=== PATIENT | female | born 1950 | race Caucasian/White ===

== ENCOUNTER 2020-08-08 20:49 | Emergency (ER) | payer SELFPAY ==
[2020-08-08 20:50] VITALS: BP 147/104; PULSE 184; RESP 17; TEMP 36.9; O2SAT 98; BMI 25.6
[2020-08-08 21:00] VITALS: PULSE 191; RESP 16; O2SAT 97
--- NOTE | 2020-08-08 21:13 | ED.ARRPALP ---
HPI - Arrhythmia/Palpitations General Chief Complaint: Arrhythmia/Palpitations Stated Complaint: ELEVATED HEART RATE Time Seen by Provider: 08/08/20 21:13 Source: patient Mode of arrival: Ambulatory Limitations: no limitations History of Present Illness HPI narrative: Patient is a 70-year-old female who is here for evaluation of a rapid heart rate. She states that it started around noon today. It has been consistent since then. Has had some chest tightness during the time. Is not lightheaded. She has had these types of symptoms in the past. Some of them have resolved on their own but she has also been to the emergency department in the past. Upon questioning and does not appear that she has ever been cardioverted. She denies any specific diagnosis of atrial fibrillation. She did describe being in the emergency department at 1 point getting medication through an IV which helped her symptoms. She has never had a Holter monitor. Has not seen Cardiology for the symptoms. Related Data Allergies Allergy/AdvReac Type Severity Reaction Status Date / Time codeine Allergy Verified 08/08/20 21:10 Review of Systems Constitutional Constitutional: Reports system reviewed and no additional complaints, except as documented and Denies headache(s) ENT Ears, Nose, Mouth, and Throat: Denies dizziness and Denies headache(s) Cardiovascular Cardiovascular: Reports chest pain, Reports rapid heart rate and Denies dyspnea Respiratory Respiratory: Denies dyspnea Gastrointestinal Gastrointestinal: Reports system reviewed and no additional complaints, except as documented Genitourinary Genitourinary: Reports system reviewed and no additional complaints, except as documented Musculoskeletal Musculoskeletal: Reports system reviewed and no additional complaints, except as documented Integumentary/Breasts Skin/Breast: Reports system reviewed and no additional complaints, except as documented Neurologic Neurologic: Denies dizziness and Denies headache(s) Psychiatric Psychiatric: Reports system reviewed and no additional complaints, except as documented Hematologic/Lymphatic On Anticoagulants: No Allergic/Immunologic Allergic/Immunologic: Reports system reviewed and no additional complaints, except as documented Patient History Medical History Palpitations Social History Smoking Status: Unknown if ever smoked Smoking Status: Unknown if ever smoked alcohol intake frequency: holidays/special occasions only Substance Use Type: does not use Exam Initial Vital Signs Initial Vital Signs: Vital Signs Temperature 98.4 F 08/08/20 20:50 Pulse Rate 184 H 08/08/20 20:50 Respiratory Rate 17 08/08/20 20:50 Blood Pressure 147/104 H 08/08/20 20:50 Pulse Oximetry 98 08/08/20 20:50 Const General: cooperative and comfortable Limitations: mental status not altered HENMT Head: normal to inspection and normocephalic Chest Chest: No tenderness Resp Effort & Inspection: normal respiratory effort Auscultation: clear to auscultation bilaterally Cardio Rate: tachycardic Rhythm: regular rhythm GI Inspection: non-distended Skin Lesions: no lesions Rashes: no rashes Neuro General: patient alert, patient awake and patient oriented x3 Cognition: normal cognition Speech: speech normal Extrem General: normal to inspection and capillary refill normal Psych Appearance: grossly normal and well kempt Course Orders Ordered: ED Orders 08/08/20 21:12 Basic Metabolic Panel Stat Complete Blood Count AUTO DIFF Stat Magnesium Stat Vital Signs Vital signs: Vital Signs - 8 hr 08/08/20 21:00 08/08/20 21:30 08/08/20 22:00 Pulse Rate 191 H 82 77 Respiratory Rate 16 22 13 Blood Pressure Pulse Oximetry 97 94 95 08/08/20 22:32 Pulse Rate 78 Respiratory Rate 18 Blood Pressure 116/58 L Pulse Oximetry 97 MDM - Arrhythmia/Palpitations Lab Data Attestation: I reviewed the patient's lab results. Result diagrams: 08/08/20 21:12 08/08/20 21:12 Labs: Lab Results 08/08/20 08/08/20 Range/Units 21:12 21:12 WBC 9.9 (4.5-11.0) X10^3/uL RBC 4.38 (4.0-5.2) X10^6/uL Hgb 14.2 (12.0-16.0) g/dL Hct 42.0 (36-46) % MCV 96.1 (80-100) fL MCH 32.4 (26-34) PG MCHC 33.7 (30-36) % RDW 13.0 (11.6-14.8) % Plt Count 288 (150-400) X10^3/uL Neut % (Auto) 61.7 (50-75) % Lymph % (Auto) 25.6 (25-40) % Bartholomew % (Auto) 9.1 (3-14) % Eos % (Auto) 2.8 (2-4) % Baso % (Auto) 0.8 (0-2) % Neut # (Auto) 6100 (7992-7195) /uL Lymph # (Auto) 2500 (9343-4721) /uL Bartholomew # (Auto) 900 (0-900) /uL Eos # (Auto) 300 (0-450) /uL Baso # (Auto) 100 (0-100) /uL Sodium 140 (137-145) mmol/L Potassium 4.1 (3.4-5.1) mmol/L Chloride 103 (98-107) mmol/L Carbon Dioxide 27 (22-32) mmol/L BUN 21 H (7-17) mg/dL Creatinine 0.44 L (0.52-1.04) mg/dL Estimated GFR > 60.0 (>60) mL/min BUN/Creatinine Ratio 47.7 H (6-22) Glucose 126 H (80-110) mg/dL Calcium 9.7 (8.4-10.2) mg/dL Magnesium 1.9 (1.6-2.3) mg/dL ECG Data Attestation: I personally reviewed and interpreted this ECG as follows: Prior ECG tracings: not available for review Interpretation: Presenting EKG Tachycardia Ventricular rate 192 Normal QRS Normal QTC No ST T wave changes Post adenosine EKG Sinus rhythm Ventricular rate 85 Normal axis Normal QRS Normal QTC No ST T wave changes MDM Narrative Medical decision making narrative: Upon arrival patient was tachycardic. It was a regular narrow complex tachycardia. She was given 6 mg of adenosine and converted to a sinus rhythm with a heart rate in the 80s. Her lecture lytes are unremarkable. She reported complete resolution of all of her presenting symptoms after the administration of the adenosine. I feel that we can hold on further workup for now. Will have her contact her primary doctor she is most likely going to need further workup to include an echocardiogram and Holter monitor and potential Cardiology consultation. She was given strict return precautions and follow-up instructions. She expressed understanding and agreement. Critical Care Time Critical Care Time Critical Care Time: Yes Total Critical Care Time: 40 Attestation: The high probability of a clinically significant, sudden or life threatening deterioration of the cardiovascular system(s) required my full and direct attention, intervention and personal management. The aggregate critical care time was 40 minutes. This time is in addition to time spent performing reported procedures but includes the following: [X] Data Review and interpretation [X] Patient assessment and monitoring of vital signs X [] Documentation [X] Medication orders and management Discharge Plan Departure Patient Disposition: Home Clinical Impression: Supraventricular tachycardia Instructions: DI for Paroxysmal Supraventricular Tachycardia Activity Restrictions/Additional Instructions: I do recommend that on Tuesday you contact your primary doctor's office to establish care with a new provider. I recommend that you discuss further workup to include a stress test, echocardiogram and potential Holter monitor. Return to the emergency department for any new or worsening symptoms Referrals: Armand Garza MD [Primary Care Provider] -
[2020-08-08] MEDS: ADENOSINE 6 MG/2 ML VIAL 18 MG IV (21:27)
[2020-08-08 21:30] VITALS: PULSE 82; RESP 22; O2SAT 94
[2020-08-08 21:54] LABS: BUN Creatinine Ratio 47.7 (6-22); Blood Urea Nitrogen 21 mg/dL (7-17); Calcium 9.7 mg/dL (8.4-10.2); Carbon Dioxide 27 mmol/L (22-32); Chloride 103 mmol/L (98-107); Estimated Glomerular Filt Rate > 60.0 mL/min (>60); Glucose 126 mg/dL (80-110); HEMOLYSIS 19 (0-50); Magnesium 1.9 mg/dL (1.6-2.3); Potassium 4.1 mmol/L (3.4-5.1); Sodium 140 mmol/L (137-145)
[2020-08-08 21:58] LABS: Add Manual Diff / Slide Review NO; Basophils Absolute Auto 100 /uL (0-100); Basophils Percent Auto 0.8 % (0-2); Eosinophils Absolute Auto 300 /uL (0-450); Eosinophils Percent Auto 2.8 % (2-4); Hemoglobin 14.2 g/dL (12.0-16.0); Lymphocytes Absolute Auto 2500 /uL (1100-4500); Lymphocytes Percent Auto 25.6 % (25-40); Mean Corpuscular HGB Conc 33.7 % (30-36); Mean Corpuscular Hemoglobin 32.4 PG (26-34); Mean Corpuscular Volume 96.1 fL (80-100); Monocytes Absolute Auto 900 /uL (0-900); Monocytes Percent Auto 9.1 % (3-14); Neutrophils Absolute Auto 6100 /uL (1500-7000); Neutrophils Percent Auto 61.7 % (50-75); Platelet Count 288 X10^3/uL (150-400); Red Blood Cell Count 4.38 X10^6/uL (4.0-5.2); White Blood Cell Count 9.9 X10^3/uL (4.5-11.0)
[2020-08-08 22:00] VITALS: PULSE 77; RESP 13; O2SAT 95
[2020-08-08 22:32] VITALS: BP 116/58; PULSE 78; RESP 18; O2SAT 97
== END 2020-08-08 22:34 | disposition home or self-care (01) ==
PROVIDERS: Emergency Provider Emergency Medicine; Family Provider Family Medicine; PCP Family Medicine
DX: I47.1 Supraventricular tachycardia (principal); R07.9 Chest pain, unspecified
CPT/HCPCS: 36415; 80048; 83735; 85025; 93005; 96374; 99284; 99291; J0153

== ENCOUNTER 2023-07-22 19:46 | Emergency (ER) | payer MEDICARE, SELFPAY ==
[2023-07-22] VITALS (7 sets, daily range): BP systolic 176–208; BP diastolic 81–98; PULSE 82–96; RESP 18–148; TEMP 36.7; O2SAT 94–100; BMI 26.5
--- NOTE | 2023-07-22 20:42 | ED_ITS ---
HPI - Animal Bite General Chief Complaint: Animal Bite Stated Complaint: Dog bite to face Time Seen by Provider: 07/22/23 20:36 Source: patient Mode of arrival: Ambulatory Limitations: no limitations History of Present Illness HPI narrative: 72-year-old with history of SVT on no anticoagulants. Patient states her dog she was petting met with the ground and then bit her on the face. She has lacerations to her eyelid nose and cheek with abrasions and her cheek and temporal as well as her lip. Does appear she may have a little bit of a laceration to her gum but she states her teeth feel solid. She does not a ppreciate any changes to her vision but notes a little bit of squiggles in his unsure if this is from her eyelid or visual change. She denies any pain to the eye itself. She is unsure when her last tetanus was. She states this was a rescue dog. She is returning back to the service dog trainer tomorrow. She will not keep the dog. Dog is up-to-date with rabies vaccinations, patient is not up-to-date with tetanus. She states the dog has never bitten before that she is aware of but has ground before when pending it. She describes it as a lab. She denies any other medical problems she states she has not on any daily medications. She has not allergy to codeine. Related Data Allergies Allergy/AdvReac Type Severity Reaction Status Date / Time codeine Allergy Verified 07/22/23 19:57 Review of Systems Review of Systems ROS Unobtainable: All systems reviewed & are unremarkable except as noted in HPI and below Patient History Medical History Palpitations Social History Smoking Status: Never smoker Smoking Status: Never smoker alcohol intake frequency: 0-2 drinks per day Substance Use Type: does not use Exam Narrative Exam Narrative: GEN: well nourished, well appearing female, alert and oriented x 3, patient appears to be in mild distress. HEENT: Patient has abrasions that are mainly superficial of the left temporal and she is, she does have 2 lacerations one in the crease of the nose below the eye, 2nd over the bridge of the nose that are both proximally cm in size and through the skin, patient has quite a bit of abrasion and ecchymosis of the other lip but no obvious punctures or lacerations. Her teeth she has no malocclusion no movement with palpation of the teeth. There appears to be little bit of abrasion into the gum just above the 2 front incisors. Patient does have a laceration to the left upper eyelid it is approximately 0.5 cm to 0.25 cm in size but is full thickness and there is gappage and involvement all the way through at the edge at the lash line, pupils are equal round reactive to light, extraocular movements are intact, nares are clear, TMs are clear with no fluid, there is no conjunctival pallor. Throat is clear without any exudates, erythema, tonsillar enlargement or uvular deviation Visual acuity: right 20/50, left 20/50 with correction. IOP: Right 24 mm Hg, Left 27 mm Hg General: globe appears intact Eyelids: normal inspection on right, left see above. Conjunctiva/Sclera: normal inspection on left, on right patient has lateral subconjunctival hemorrhage. Corneas: normal inspection, examined with fluroscein on left, patient does have uptake at the 12 o'clock position of the sclera but no significant uptake over the cornea. No waterfall sign. EOM: intact, no palsy/entrapment Pupils: PERRL, normal accomadation, pupil normal Anterior Chambers: normal inspection, no hypema Posterior: normal fundoscopic on bilaterally. HEART: Regular rate and rhythm without murmur, clicks, rubs. LUNGS:Lungs clear to auscultation, no wheezes, rales, crackles, chest moves symmetrically ABD:bowel sounds normal, soft, non-tender, no guarding, rebound, rigidity, no masses noted, no hepatosplenomegaly MSCL: Non-tender, no muscle atrophy, muscles strength 5/5 upper and lower extremities, full range of motion, normal gait, no other obvious abrasions or injuries to patient's extremities. NEURO:CN 2-12 intact, sensation normal Initial Vital Signs Initial Vital Signs: Vital Signs Pulse Rate 92 H 07/22/23 19:50 Blood Pressure 208/98 H 07/22/23 19:50 Pulse Oximetry 100 07/22/23 19:50 Procedures Laceration Repair Laceration 1: Site: face (nose) Size (cm): 1 Description: irregular Depth: simple, single layer Local Anesthetic: lidocaine 2% Amount of anesthesia used (mL): 1 Pre-repair: wound explored, irrigated extensively and deep structures intact Skin layer closed with: vicryl Skin layer suture size: 5-0 Number of sutures: 5 Technique: simple, interrupted Laceration 2: Site: face (left lateral nose) Size (cm): 0.75 Description: irregular Depth: simple, single layer Local Anesthetic: lidocaine 2% Amount of anesthesia used (mL): 1 Pre-repair: wound explored, irrigated extensively and deep structures intact Skin layer closed with: vicryl Skin layer suture size: 5-0 Number of sutures: 3 Technique: simple, interrupted Course Orders Ordered: Discontinued Medications Amoxicillin/Clavulanate Potassium (Amoxicillin/Clav 875/125 Mg) 1 tab PO NOW ONE Stop: 07/22/23 20:56 Last Admin: 07/22/23 21:02 Dose: 1 tab Documented By: ASHVIN Diphtheria/Tetanus/Acell Pertussis (Tet,Diph,Pertuss(Acell),Vac/Pf 0.5 Ml Syringe) 0.5 ml IM .ONCE ONE Stop: 07/22/23 20:28 Last Admin: 07/22/23 21:03 Dose: 0.5 ml Documented By: ASHVIN Fluorescein Sodium (Fluorescein 1 Mg Strip) 1 mg EYE-LEFT NOW ONE Stop: 07/22/23 20:49 Last Admin: 07/22/23 21:02 Dose: 1 mg Documented By: ASHVIN Lidocaine HCl (Lidocaine 2% Inj Sdv 5ml) 10 ml INJ NOW ONE Stop: 07/22/23 20:49 Last Admin: 07/22/23 21:01 Dose: 10 ml Documented By: ASHVIN Proparacaine HCl (Proparacaine 0.5% Ophth Chantelle) 1 drops EYE-BOTH NOW ONE Stop: 07/22/23 20:49 Last Admin: 07/22/23 21:01 Dose: 1 drop Documented By: ASHVIN Vital Signs Vital signs: Vital Signs - 8 hr 07/22/23 19:50 07/22/23 19:50 07/22/23 19:53 Temperature 98.1 F Pulse Rate 92 H 89 Respiratory Rate 148 H Blood Pressure 208/98 H 208/98 H Pulse Oximetry 100 99 Oxygen Delivery Method Room Air 07/22/23 20:00 05/24/24 20:00 07/22/23 20:30 Temperature Pulse Rate 96 H 89 Respiratory Rate Blood Pressure 201/95 H Pulse Oximetry 98 98 Oxygen Delivery Method Room Air 07/22/23 20:56 07/22/23 20:56 07/22/23 21:00 Temperature Pulse Rate 87 Respiratory Rate Blood Pressure 195/89 H 176/81 H Pulse Oximetry 96 Oxygen Delivery Method 07/22/23 21:00 07/22/23 22:16 07/22/23 22:16 Temperature Pulse Rate 82 88 Respiratory Rate 18 Blood Pressure 183/87 H Pulse Oximetry 97 94 Oxygen Delivery Method MDM - Animal Bite MDM Narrative Medical decision making narrative: 72-year-old female with dog bites to the face. To or deep enough they do require repair, the 2nd laceration between the nose in the eye I did leave slightly open the very top has it is quite close to the eye itself and felt had increased risk for damage to underlying structures and approximates quite well and will likely heal very well. There is a 3rd of the eyelid that does require some subspecialty repair as it is completely through and through to the lid with CABG at the lash line. Patient does have a little bit of subconjunctival hematoma in the lateral portion. Eye exam shows scleral abrasion and hemorrhage but no obvious hyphema or corneal involvement. Patient's pressures are slightly elevated bilaterally. Visual acuity is 20/50 right and left and bilaterally with glasses. Patient's tetanus was updated, her dog's rabies shots are up-to-date. Patient was started on Augmentin. She had wound care for her abrasions, 2 lacerations were repaired in the 3rd we will require specialty repair. Spoke with ophthalmology at [facility], Dr. Tom accepts for transfer. Plan for [facility] Emergency Department. Patient elects to transfer via private auto which I think is very appropriate based on her injuries. Discharge Plan Departure Patient Disposition: [facility] Clinical Impression: Dog bite of face Laceration of eyelid, full-thickness Qualifiers: Encounter type: initial encounter Laterality: left Qualified Code(s): S01.112A - Laceration without foreign body of left eyelid and periocular area, initial encounter Activity Restrictions/Additional Instructions: Go directly to the emergency department at [facility] in [place] let them know that you are being transferred for repair of your eyelid. Take of the transfer packet with you and present this to registration. Referrals: Armand Garza MD [Primary Care Provider] - Stand Alone Forms: Patient Portal/API
[2023-07-22] MEDS: PROPARACAINE 0.5% OPHTH SOL 1 DROPS EYE-BOTH (21:01)
[2023-07-22] MEDS: LIDOCAINE 2% INJ SDV 5ML 10 ML INJ (21:01)
[2023-07-22] MEDS: FLUORESCEIN 1 MG STRIP EYE-LEFT (21:02)
[2023-07-22] MEDS: AMOXICILLIN/CLAV 875/125 MG 1 TAB PO (21:02)
[2023-07-22] MEDS: TET,DIPH,PERTUSS(ACELL),VAC/PF 0.5 ML SYRINGE IM (21:03)
== END 2023-07-22 22:35 | disposition short-term general hospital (02) ==
PROVIDERS: Emergency Provider Emergency Medicine; Family Provider Family Medicine; PCP Family Medicine
DX: S01.152A Open bite of left eyelid and periocular area, initial encounter (principal); S01.25XA Open bite of nose, initial encounter; W54.0XXA Bitten by dog, initial encounter; Y93.89 Activity, other specified; Z23 Encounter for immunization
CPT/HCPCS: 12011; 90471; 99284; 90715

== ENCOUNTER → 2023-08-10 16:24 | Outpatient (CLI) | payer MEDICARE, SELFPAY | PROVIDERS: Family Provider Family Medicine; PCP Nurse Practitioner Family; Visit Provider Nurse Practitioner Family | DX: S01.85XA Open bite of other part of head, initial encounter (principal); W54.0XXA Bitten by dog, initial encounter | CPT/HCPCS: 87070; 87075; 87205 ==

== ENCOUNTER → 2023-10-24 11:16 | Outpatient (CLI) | payer OTHER, SELFPAY ==
[2023-10-24 12:56] LABS: Hematocrit 40.4 % (36-46); Hemoglobin 13.6 g/dL (12.0-16.0); Mean Corpuscular HGB Conc 33.7 % (30-36); Mean Corpuscular Hemoglobin 32.9 PG (26-34); Mean Corpuscular Volume 97.5 fL (80-100); Platelet Count 298 X10^3/uL (150-400); Red Blood Cell Count 4.15 X10^6/uL (4.0-5.2); Red Cell Distribution Width 13.9 % (11.6-14.8); White Blood Cell Count 10.3 X10^3/uL (4.5-11.0)
[2023-10-24 13:22] LABS: BUN Creatinine Ratio 20.7 (6-22); Blood Urea Nitrogen 12 mg/dL (7-17); Calcium 9.2 mg/dL (8.4-10.2); Carbon Dioxide 27 mmol/L (22-32); Chloride 106 mmol/L (98-107); Cholesterol 217 mg/dL (140-199); Estimated Glomerular Filt Rate > 60 mL/min (>60); Glucose 91 mg/dL (80-110); HDL Cholesterol 62 mg/dL (40-60); HEMOLYSIS < 15 (0-50); LDL Cholesterol Calculated 101 mg/dL (<100); Potassium 4.3 mmol/L (3.4-5.1); Sodium 140 mmol/L (137-145); Triglycerides 268 mg/dL (35-150)
== END ==
PROVIDERS: Family Provider Family Medicine; PCP Nurse Practitioner Family; Referring Provider Nurse Practitioner Family; Visit Provider Nurse Practitioner Family
DX: Z00.00 Encounter for general adult medical examination without abnormal findings (principal)
CPT/HCPCS: 36415; 80048; 80061; 85027

== ENCOUNTER 2023-11-23 22:04 | Emergency (ER) | payer OTHER, SELFPAY ==
[2023-11-23 22:15] VITALS: BP 173/73; PULSE 71; RESP 16; TEMP 36.8; O2SAT 97; BMI 25.6
--- NOTE | 2023-11-23 22:35 | ED.ANIMALBIT ---
HPI - Animal Bite General Chief Complaint: Animal Bite Stated Complaint: dog bite to face Time Seen by Provider: 11/23/23 22:21 Source: patient Mode of arrival: Ambulatory History of Present Illness HPI narrative: Patient presents with accidental dog bite to face. She states that she was kissing her dog's face when the dog bit her. Dog is up-to-date on vaccinations. Patient states she is UTD on tetanus Related Data Previous Rx's Medication Instructions Recorded amoxicillin 875 mg-potassium 1 tab PO Q12H #20 tabs 11/23/23 clavulanate 125 mg tablet Allergies Allergy/AdvReac Type Severity Reaction Status Date / Time codeine Allergy Verified 11/23/23 22:17 Patient History Medical History Palpitations Social History Smoking Status: Never smoker Smoking Status: Never smoker alcohol intake frequency: 0-2 drinks per day Substance Use Type: does not use Exam Initial Vital Signs Initial Vital Signs: Vital Signs Temperature 98.2 F 11/23/23 22:15 Pulse Rate 71 11/23/23 22:15 Respiratory Rate 16 11/23/23 22:15 Blood Pressure 173/73 H 11/23/23 22:15 Pulse Oximetry 97 11/23/23 22:15 Oxygen Delivery Method Room Air 11/23/23 22:15 Const: Awake, alert, no acute distress, nontoxic appearing Skin: Warm, Dry, 2cm horizontal laceration under chin Neuro: AO x3, CN II-XII grossly intact, moves all extremities Procedures Laceration Repair Laceration 1: Site: face Size (cm): 2 Description: linear Depth: simple, single layer Local Anesthetic: lidocaine 1% and with epi Amount of anesthesia used (mL): 3 Pre-repair: wound explored and irrigated extensively Skin layer closed with: nylon Skin layer suture size: 5-0 Number of sutures: 3 Technique: simple, interrupted Course Orders Ordered: Discontinued Medications Amoxicillin/Clavulanate Potassium (Amoxicillin/Clav 875/125 Mg) 1 tab PO NOW ONE Stop: 11/23/23 23:03 Last Admin: 11/23/23 23:07 Dose: 1 tab Documented By: AB Vital Signs Vital signs: Vital Signs - 8 hr 11/23/23 22:15 Temperature 98.2 F Pulse Rate 71 Respiratory Rate 16 Blood Pressure 173/73 H Pulse Oximetry 97 Oxygen Delivery Method Room Air MDM - Animal Bite MDM Narrative Medical decision making narrative: Dog bite to face. Since the wound is on the face it was irrigated copiously with normal saline and Betadine by nursing staff. Loosely approximated with sutures per procedure note. Discharged on Augmentin, 1st dose given in the emergency department prior to discharge. Discharge Plan Departure Patient Disposition: Home Clinical Impression: Dog bite Instructions: DI for Laceration Repair -- Simple, DI for Dog Bite Activity Restrictions/Additional Instructions: Your sutures will need to be removed in 5-7 days. Make sure that you take all of your antibiotics as prescribed. If you notice unusual redness, drainage, or swelling in the area please return immediately to the emergency department for repeat evaluation Prescriptions: New amoxicillin-pot clavulanate 875-125 mg tablet 1 tab PO Q12H Qty: 20 0RF Referrals: Carolina Mckeon FNP-WING [Primary Care Provider] - Stand Alone Forms: Patient Portal/API
--- NOTE | 2023-11-23 22:57 | PC.NURSE ---
patient has deep laceration on her chin approx 2.5 cm in length: bleeding stopped. Scrape on bridge of nose, bleeding stopped: wound superficial. 3 -4 tooth esparza on right cheek: superficial puntures: bleeding control.
[2023-11-23] MEDS: AMOXICILLIN/CLAV 875/125 MG 1 TAB PO (23:07)
== END 2023-11-23 23:09 | disposition home or self-care (01) ==
PROVIDERS: Emergency Provider Emergency Medicine; Family Provider Family Medicine; PCP Nurse Practitioner Family
DX: S01.85XA Open bite of other part of head, initial encounter (principal); W54.0XXA Bitten by dog, initial encounter
CPT/HCPCS: 12011; 99283